=== PATIENT | male | born 2005 | race African-American/Black ===

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

== ENCOUNTER 2025-03-16 16:21 | Outpatient (REF) | payer MEDICAID, SELFPAY ==
--- OUTSIDE RECORDS SUMMARY | 2025-03-16 16:23 | XMS_ITS | Encounter Summary ---
Author Organization [employer] Address [address] [place] [address] [address] [place] [address] Care Team Providers Care Capacity Planning Engineer Name Role Phone Venus Acevedo NP Primary Care Provider [phone] Reason for Visit * Reason Onset Date Comments Appointment Request 12/11/2024 Encounter Details Date Type Department Care Team ([facility] st Contact Info) Description 12/11/2024 Telephone [facility] [address] [place] [address] Venus Acveedo NP [address] [place] [address] Appointment Request Social History Tobacco Use Types Packs/Day Years Used Date Smoking Tobacco: Never Smokeless Tobacco: Never Alcohol Use Standard Drinks/Week Comments Never 0 (1 standard drink = 0.6 oz pur e alcohol) Sex and Gender Information Value Date Recorded Sex Assigned at Male 06/05/2022 10:21 AM EDT Legal Sex Male 10:21 AM EDT Gender Identity Male 06/05/2022 10:21 AM EDT Sexual Orientation Don't know 06/05/2022 10 :21 AM EDT documented as of this encounter Miscellaneous Notes * Telephone Encounter - Rocio Griffin - 12/11/2024 8:49 AM EDT Tc from pt mom requesting a transfer patient appointment. documented in this encounter Plan of Treatment Not on file documented as of this encounter Visit Diagnoses Not on filedocumented in this encounter Care Teams Capacity Planning Engineer Relationship Specialty Start Date End Date Venus Acevedo NP [address] [place] [address] PCP - General Family Medicine 04/09/24 documented as of this encounter
[2025-03-17 10:38] LABS: CT PCR Urine DETECTED (Not Detect.); NG PCR Urine NOT DETECTED (Not Detect.)
== END 2025-03-16 16:22 | disposition home or self-care (01) ==
LOC: HO.HHCLNP 16:21
PROVIDERS: Visit Provider Nurse Practitioner
DX: Z20.2 Contact with and (suspected) exposure to infections with a predominantly sexual mode of transmission (principal); Z11.3 Encounter for screening for infections with a predominantly sexual mode of transmission; Z11.8 Encounter for screening for other infectious and parasitic diseases
CPT/HCPCS: 36415; 87491; 87591; 87661

== ENCOUNTER 2025-03-18 11:26 | Outpatient (REF) | payer MEDICAID, SELFPAY ==
--- OUTSIDE RECORDS SUMMARY | 2025-03-18 12:24 | XMS_ITS | Encounter Summary ---
Author Organization [employer] Address [address] [place] [address] Care Team Providers Care Shotblaster Name Role Phone Venus Acevedo NP Primary Care Provider [phone] Encounter Details Date Type Department Care Team ([facility] Contact Info) Description 03/17/2025 Results Follow-Up [facility] [address] [place] [address] Venus Acevedo NP [address] [place] [address] Chlamydia/N. Gonorrhoeae, PCR, Urine Social History Tobacco Use Types Packs/Day Years Used Date Smoking Tobacco: Never Smokeless Tobacco: Never Alcohol Use Standard Drinks/Week Comments Yes 0 (1 standard drink = 0.6 oz pur e alcohol) on ocassion Alcohol Answer Date Recorded How often do you have a drink containing alcohol ? 1 03/16/2025 How many drinks containing a lcohol do you have on a typical day when you are drinking? 1 03/16/2025 How often do you have six or more drinks on one occasion? 0 03/16/2025 Depression Answer Date Recorded Patient Health Questionnaire-9 Score 2 03/16/2025 Patient Health Questionnaire-9 Score 2 03/16/2025 Last PHQ-9: Questionnaire Data Not on file 0 03/16/2025 Housing Stability Answer Date Recorded What is your housing situation today? I have jacques don 03/09/[address] you li ve. Do you have problems with any of the following? None of the above 03/09/2025 Food Insecurity Answer Date Recorded Within the past 12 months, y ou worried that your food would run out before you got money to buy more: Never True 03/09/2025 Within the past 12 months,th e food you bought just didn't last and you didn't have enough money to get more: Never True 11/2024 Transportation Answer Date Recorded In the past 12 months, has l ack of transportation kept you from medical appts, meetings, work or from getting things needed for daily living? No 03/09/2025 Utilities Answer Date Recorded In the past 12 months, has t he electric, gas, oil or water company threatened to shut off services in your home? No 03/09/2025 Depression Answer Date Recorded Patient Health Questionnaire-2 Score 0 03/16/2025 Internet Access Answer Date Recorded Internet Access Q1 Yes 03/09/2025 Internet Access Q2 Not on file 03/09/2025 Sex and Gender Information Value Date Recorded Sex Assigned at Male 06/05/2022 10:21 AM EDT Legal Sex Male 10:21 AM EDT Gender Identity Male 06/05/2022 10:21 AM EDT Sexual Orientation Don't know 06/05/2022 10 :21 AM EDT documented as of this encounter Miscellaneous Notes * Telephone Encounter - Sudha Lo RN - 03/17/2025 2:08 PM EDT Tc to pt to let them know per PCP Please call and inform patient of positive Chlamydia test result. I have sent 7 day course of doxy to pharmacy on file. Advise avoidance of prolonged sun exposure and use of sunscreen as medication make skin more sensitive to sunburn. Remainder of his labs are still pending. Thanks . Message sent to PCP for clarification since script sent out says to take for 10 days. Per PCP Treatment duration 7 days. Please correct with pharmacy. Thanks . Tc to pharmacy to let them know and they verbalized they'll adjust the duration to 7 days. Tc to pt to advise them to take the medication for 7 days not 10. Pt then wants to know if the medication will be covered and advised pt they would have to call the pharmacy to confirm. Pt requesting if we can call them. TC to [facility] to confirm they report they do not have pt insurance on file and that pt will need to bring their insurance card in for them to confirm. Tc to pt to let them know and if they have any issues orconcerns to call our office back to let us know. Pt verbalized understanding and agrees with plan. * Telephone Encounter - Sudha Lo RN - 03/17/2025 1:47 PM EDT ----- Message from Venus Acevedo sent at 03/17/2025 11:32 AM EDT ----- Please call and inform patient of positive Chlamydia test result. I have sent 7 day course of doxy to pharmacy on file. Advise avoidance of prolonged sun exposure and use of sunscreen as medication make skin more sensitive to sunburn. Remainder of his labs are still pending. Thanks ----- Message ----- From: Interface, Lab Results In Sent: 03/17/2025 10:38 AM EDT To: Venus Acevedo NP * Result Encounter Note - Venus Acevedo NP - 03/17/2025 12:23 PM EDT Treatment duration 7 days. Please correct with pharmacy. Thanks documented in this encounter Plan of Treatment Not on file documented as of this encounter Visit Diagnoses Diagnosis Chlamydia infection- Primary Unspecified chlamydial infection, in conditions classified elsewhere and of unspecified site documented in this encounter Additional Health Concerns Assessment Noted Time PHQ-9 Depression Total Score: 2 03/16/20 25 11:20 AM EDT documented as of this encounter Care Teams Shotblaster Relationship Specialty Start Date End Date Venus Acevedo NP [address] [place] [id number] PCP - General Family Medicine 04/09/24 documented as of this encounter
[2025-03-18 14:03] LABS: Cholesterol 180 mg/dL (<200); HDL Cholesterol 57 mg/dL (>40); Triglycerides 75 mg/dL (<150)
[2025-03-19 03:53] LABS: Syphilis Screen Nonreactive (Nonreactive)
[2025-03-19 04:14] LABS: HBS Num1 1.01 mIU/mL (0-7.99); HBc Num1 0.09 S/CO (0.00-0.79); HBsAGNum1 0.42 S/CO (0.00-0.99); Hepatitis B Surface Antigen Negative (Negative); ~HepC Num1 0.31 S/CO (0.00-0.79); ~Hepatitis B Surface Antibody NONREACTIVE (Nonreactive); ~Hepatitis C Antibody Nonreactive (Nonreactive)
== END 2025-03-18 11:27 | disposition home or self-care (01) ==
LOC: HO.HHCL 11:26
PROVIDERS: PCP Nurse Practitioner; Visit Provider Nurse Practitioner
DX: Z20.2 Contact with and (suspected) exposure to infections with a predominantly sexual mode of transmission (principal); Z11.59 Encounter for screening for other viral diseases; E78.1 Pure hyperglyceridemia
CPT/HCPCS: 36415; 80061; 86704; 86706; 86780; 86803; 87340